=== PATIENT | male | born 1965 | race Caucasian/White ===

== ENCOUNTER 2021-03-02 18:24 | Emergency (ER) | payer OTHER ==
[~2021-03-02 18:24] MED LIST: CARDENE 20MG CA20 MG PO; COZAAR100 MG PO; COZAAR50 MG PO; HYDRALAZINE HCL50 MG PO; LOPRESSOR50 MG PO; NORCO 5-325 TA1 EACH PO; NORVASC10 MG PO; TOPROL XL50 MG PO; ZESTRIL40 MG PO
[2021-03-02] MEDS ORDERED: BACTRIM 400-801 EACH PO (20:25)
== END 2021-03-02 21:07 | disposition home or self-care (01) ==
LOC: ER1 18:24
DX: L02.31 Cutaneous abscess of buttock (principal); Z88.0 Allergy status to penicillin
CPT/HCPCS: 10060; 99282